=== PATIENT | female | born 1955 | race Asian ===

== ENCOUNTER 2016-11-01 15:24 | Emergency (ER) | payer OTHER ==
[~2016-11-01] VITALS: Ht 162.6 cm; Wt 68.0 kg
[2016-11-01 17:21] LABS: PLATELET COUNT 260 K/uL (152-353)
[2016-11-01 17:36] LABS: POTASSIUM 3.5 mmol/L (3.6-5.2); SODIUM 130 mmol/L (136-145)
[2016-11-01 18:52] VITALS: BP 130/68; TEMP 99
== END 2016-11-01 18:53 | disposition home or self-care (01) ==
LOC: ED 15:24
PROVIDERS: Specialist
DX: R53.81 Other malaise (principal); J06.9 Acute upper respiratory infection, unspecified; E86.9 Volume depletion, unspecified
CPT/HCPCS: 36415; 80048; 81000; 83735; 85027; 87804; 96365; 99283

== ENCOUNTER 2016-12-24 09:09 | Outpatient (CLI) | payer OTHER | END 2016-12-24 19:15 | disposition home or self-care (01) | LOC: MAMMO 09:09 | DX: Z12.31 Encounter for screening mammogram for malignant neoplasm of breast (principal) | CPT/HCPCS: G0202-TC ==

== ENCOUNTER 2017-01-26 10:48 | Emergency (ER) | payer OTHER ==
[~2017-01-26] VITALS: Ht 165.1 cm; Wt 65.8 kg
[2017-01-26 10:56] VITALS: TEMP 98.3
[2017-01-26 11:12] LABS: PLATELET COUNT 265 K/uL (152-353)
[2017-01-26 12:00] VITALS: BP 118/90
== END 2017-01-26 12:00 | disposition home or self-care (01) ==
LOC: ED 10:48
DX: M47.896 Other spondylosis, lumbar region (principal)
CPT/HCPCS: 36415; 81000; 85027; 99283

== ENCOUNTER 2017-12-11 09:26 | Emergency (ER) | payer OTHER ==
[~2017-12-11] VITALS: Ht 165.1 cm; Wt 68.0 kg
[2017-12-11 09:30] VITALS: BP 121/75; TEMP 98.7
== END 2017-12-11 10:40 | disposition home or self-care (01) ==
LOC: ED 09:26
DX: M79.604 Pain in right leg (principal)

== ENCOUNTER 2017-12-18 13:43 | Emergency (ER) | payer OTHER ==
[~2017-12-18] VITALS: Ht 162.6 cm; Wt 68.0 kg
[2017-12-18 13:45] VITALS: TEMP 98.3
[2017-12-18 14:44] VITALS: BP 120/68
== END 2017-12-18 14:48 | disposition home or self-care (01) ==
LOC: ED 13:43
DX: M17.11 Unilateral primary osteoarthritis, right knee (principal)
CPT/HCPCS: 99282

== ENCOUNTER 2018-02-22 12:40 | Outpatient (CLI) | payer OTHER | END 2018-02-22 23:41 | disposition home or self-care (01) | LOC: MAMMO 12:40 | DX: Z12.31 Encounter for screening mammogram for malignant neoplasm of breast (principal) ==

== ENCOUNTER 2018-07-14 12:26 | Emergency (ER) | payer OTHER ==
[~2018-07-14] VITALS: Ht 165.1 cm; Wt 68.0 kg
[2018-07-14 12:34] VITALS: TEMP 97.7
[2018-07-14 12:50] LABS: PLATELET COUNT 274 K/uL (152-353)
[2018-07-14 13:04] LABS: POTASSIUM 3.9 mmol/L (3.6-5.2)
[2018-07-14 13:26] VITALS: BP 120/88
== END 2018-07-14 13:27 | disposition home or self-care (01) ==
LOC: ED 12:26
DX: M51.86 Other intervertebral disc disorders, lumbar region (principal)
CPT/HCPCS: 36415; 80053; 81000; 85027; 99283

== ENCOUNTER 2019-02-27 08:01 | Outpatient (CLI) | payer OTHER | END 2019-02-27 23:17 | disposition home or self-care (01) | LOC: MAMMO 08:01 | DX: Z12.31 Encounter for screening mammogram for malignant neoplasm of breast (principal) ==

== ENCOUNTER 2020-04-19 08:02 | Outpatient (CLI) | payer OTHER | END 2020-04-19 23:18 | disposition home or self-care (01) | LOC: MAMMO 08:02 | DX: Z12.31 Encounter for screening mammogram for malignant neoplasm of breast (principal) ==

== ENCOUNTER 2021-09-10 09:07 | Outpatient (CLI) | payer OTHER | END 2021-09-10 18:57 | disposition home or self-care (01) | LOC: MAMMO 09:07 | PROVIDERS: ATTEND Internal Medicine | DX: Z12.31 Encounter for screening mammogram for malignant neoplasm of breast (principal) ==

== ENCOUNTER 2022-10-07 08:54 | Outpatient (CLI) | payer OTHER | END 2022-10-07 19:38 | disposition home or self-care (01) | LOC: MAMMO 08:54 | PROVIDERS: ATTEND Nurse Practitioner Family | DX: Z12.31 Encounter for screening mammogram for malignant neoplasm of breast (principal) ==

== ENCOUNTER 2022-11-09 09:11 | Outpatient (CLI) | payer OTHER | END 2022-11-09 21:09 | disposition home or self-care (01) | LOC: MAMMO 09:11 | PROVIDERS: ATTEND Nurse Practitioner Family | DX: Z78.0 Asymptomatic menopausal state (principal); Z12.31 Encounter for screening mammogram for malignant neoplasm of breast; R92.8 Other abnormal and inconclusive findings on diagnostic imaging of breast ==